=== PATIENT | female | born 1975 | race American Indian/Alaskan Native ===

== ENCOUNTER 2017-04-21 08:17 | Emergency (ER) | payer OTHER ==
[2017-04-21 08:23] VITALS: BMI 33.4
[2017-04-21 08:24] VITALS: RESP 17; TEMP 98.4; O2SAT 100
--- NOTE | 2017-04-21 10:28 | ED PDOC ---
HPI: Female Pain Time Seen by Provider: 04/21/17 08:36 Chief Complaint (Nursing): Female Genitourinary Chief Complaint (Provider): Vaginal bleeding History Per: Patient History/Exam Limitations: no limitations Onset/Duration Of Symptoms: Days (x several months) Current Symptoms Are (Timing): Still Present Additional Complaint(s): Lauren Mcmillan is a 41 y/o female who presents to the ED complaining of vaginal bleeding, ongoing since an in September. Patient has been evaluated by her sink maker who previously sent her to [place], labs were normal. This is her 5th ER visit for the same complaint. Seen at [facility] yesterday for the same. Patient is agitated in the ED, yelling and screaming. PMD: Josue Hemphill MD Abnormal Vaginal Bleeding: Yes Past Medical History Reviewed: Historical Data, Nursing Documentation, Vital Signs Vital Signs: Last Vital Signs Temp 98.4 F 04/21/17 08:23 Pulse 101 H 04/21/17 08:23 Resp 17 04/21/17 08:23 BP 139/100 H 04/21/17 08:23 Pulse Ox 100 04/21/17 08:23 - Medical History PMH: HTN - Surgical History Surgical History: Cholecystectomy - Family History Family History: States: Unknown Family Hx - Social History Ex-Smoker (has not smoked in the last 12 months): Yes Alcohol: None Drugs: Denies - Immunization History Hx Tetanus Toxoid Vaccination: No Hx Influenza Vaccination: No Hx Pneumococcal Vaccination: No - Home Medications Home Medications: Ambulatory Orders Medication Instructions Recorded No Known Home Med 04/18/17 - Allergies Allergies/Adverse Reactions: Allergies Allergy/AdvReac Type Severity Reaction Status Date / Time No Known Allergies Allergy Verified 04/19/17 16:13 Review of Systems ROS Statement: Except As Marked, All Systems Reviewed And Found Negative Constitutional: Negative for: Fever, Chills Cardiovascular: Negative for: Chest Pain Respiratory: Negative for: Shortness of Breath Gastrointestinal: Negative for: Nausea, Vomiting, Abdominal Pain, Diarrhea Genitourinary Female: Positive for: Vaginal Bleeding Physical Exam - Reviewed Nursing Documentation Reviewed: Yes Vital Signs Reviewed: Yes - Physical Exam Appears: Positive for: Non-toxic, No Acute Distress Head Exam: Positive for: ATRAUMATIC, NORMAL INSPECTION, NORMOCEPHALIC Skin: Positive for: Normal Color, Warm, Dry Eye Exam: Positive for: EOMI, Normal appearance, PERRL Neck: Positive for: Normal, Painless ROM Extremity: Positive for: Normal ROM. Negative for: Deformity Neurologic/Psych: Positive for: Alert, Oriented (x3), Other (Appears agitated; screaming and yelling upon exam. Patient refusing physical exam, therefore exam limited to inspection. Wants a work note) - ECG O2 Sat by Pulse Oximetry: 100 (RA) Pulse Ox Interpretation: Normal Medical Decision Making Medical Decision Making: Labs drawn at [facility] yesterday were reviewed, hemoglobin was WNL. Time: 10:00 Plan: --Will order test. If negative, patient may follow up with sink maker. Time: 10:26 Patient refusing test. Demands work note. Stable for discharge home. Scribe Attestation: Documented by Belem Benitez, acting as a scribe for Corrina Lofton MD Provider Scribe Attestation: All medical record entries made by the Scribe were at my direction and personally dictated by me. I have reviewed the chart and agree that the record accurately reflects my personal performance of the history, physical exam, medical decision making, and the department course for this patient. I have also personally directed, reviewed, and agree with the discharge instructions and disposition. Disposition - Clinical Impression Clinical Impression: Vaginal bleeding - Patient ED Disposition Is Patient to be Admitted: No - Disposition Referrals: [facility] [Outside] Disposition: Routine/Home Disposition Time: 10:26 Condition: STABLE Instructions: Dysfunctional Uterine Bleeding (ED) Forms: [employer] ([place]ian)
[2017-04-21 10:42] VITALS: BP 136/87; PULSE 89
== END 2017-04-21 10:41 | disposition home or self-care (01) ==
LOC: H.ER 08:17
DX: N93.9 Abnormal uterine and vaginal bleeding, unspecified (principal); I10 Essential (primary) hypertension